=== PATIENT | male | born 1945 | race Caucasian/White ===

== ENCOUNTER 2019-06-12 05:17 | Inpatient (IN) | payer MEDICARE, OTHER ==
[2019-06-12] MEDS ORDERED: Benzocaine 20% Spray 60 ML CAN ONE (05:25)
[2019-06-12] MEDS ORDERED: Ondansetron PF 4 MG/2 ML Vial ONE ×2 (05:25→05:26)
[2019-06-12] MEDS ORDERED: Morphine 4 MG/ML VIAL ONE ×2 (05:25→08:43)
[2019-06-12 06:00] LABS: #Lymphocytes 0.9 thou/uL (1.20-3.40); #Monocytes 0.4 thou/uL (0.11-0.59); #Neutrophils 12.9 thou/uL (1.40-6.50); %Basophils 0.2 % (0.0-1.0); %Eosinophils 0.2 % (0.0-10.0); %Lymphocytes 6.1 % (21.0-51.0); %Monocytes 3.1 % (0.0-10.0); %Neutrophils 90.4 % (42.0-75.0); Mean Corpuscular HGB CONC 34.5 g/dL (32.0-36.0); Mean Corpuscular Hemoglobin 30.9 pg (27.0-31.0); Mean Corpuscular Volume 89.7 fL (78.0-98.0); Mean Platelet Volume 8.9 fL (7.4-10.4); Platelet Count 237 thou/uL (130-400); RBC Distribution Width 11.8 % (11.5-14.5); Red Blood Cell (RBC) Count 5.17 mill/uL (4.70-6.10); White Blood Cell (WBC) Count 14.3 thou/uL (4.8-10.8)
[2019-06-12 06:20] LABS: INR-International Normal Ratio 1.1; Prothrombin Time 13.9 SEC (12.0-14.7)
[2019-06-12] MEDS ORDERED: Pantoprazole 40 MG VIAL ONE (06:34)
[2019-06-12 06:54] LABS: ALT (SGPT) 25 U/L (8-55); AST (SGOT) 22 U/L (5-34); Albumin 4.4 g/dL (3.4-4.8); Alkaline Phosphatase 127 U/L (40-110); Anion Gap 16 mmol/L (10-20); BUN (Urea Nitrogen) 15 mg/dL (8.4-25.7); Bilirubin, Total 1.1 mg/dL (0.2-1.2); CK (CPK) 109 U/L (30-200); Calc. Creatinine Clearance 0 mL/min (70-130); Calcium 9.5 mg/dL (7.8-10.44); Carbon Dioxide 22 mmol/L (23-31); Chloride 100 mmol/L (98-107); Estimated GFR-MDRD 85; Globulin 3.4 g/dL (2.4-3.5); Glucose 245 mg/dL (83-110); Lipase Less than 4 U/L (8-78); Protein, Total 7.8 g/dL (5.8-8.1); Sodium 134 mmol/L (136-145)
[2019-06-12 07:33] LABS: Magnesium 1.8 mg/dL (1.6-2.6); Phosphorus 2.9 mg/dL (2.3-4.7)
--- NOTE | 2019-06-12 08:26 | RAD ---
SINGLE VIEW CHEST: Date: 06/12/2019 COMPARISON: None. HISTORY: Small bowel obstruction with nausea and vomiting. FINDINGS: Single view of the chest shows a nonspecific, nonobstructed bowel gas pattern. A cardiac monitoring d evice projects over the left chest wall. A NG tube can only be followed to the mid mediastinum. IMPRESSION: No evidence of acute cardiopulmonary disease. POS: CET
[2019-06-12] MEDS ORDERED: Pantoprazole 80 MG, Admixture Fee 1 EACH in Sodium Chloride 0.9% 100 ML IVPB SCH (09:00)
[2019-06-12 09:40] VITALS: BMI 32.8
[2019-06-12] MEDS ORDERED: Cepastat Lozenges 1 LOZ PO PRN (09:52)
[2019-06-12] MEDS ORDERED: Acetaminophen 650 MG Suppository PR PRN (09:52)
[2019-06-12] MEDS ORDERED: Ondansetron PF 4 MG/2 ML Vial IVP PRN (09:52)
[2019-06-12] MEDS ORDERED: Nitroglycerin 0.4 MG TAB (25 Tab Bottle) SL PRN (09:52)
[2019-06-12] MEDS ORDERED: hydrALAZINE 20 MG/ML VIAL SLOW IVP PRN (09:52)
[2019-06-12] MEDS ORDERED: Sodium Chloride 0.65% Nasal 44 ML BOT EA NARE PRN (09:52)
[2019-06-12] MEDS ORDERED: Artificial Tears 18 DROP/0.9 ML EA EYE PRN (09:52)
[2019-06-12] MEDS ORDERED: Bisacodyl 10 MG SUPP PR PRN (09:52)
[2019-06-12] MEDS: Lactated Ringer's 1,000 ML IV SCH ×2 (10:54→18:33)
[2019-06-12] MEDS: Morphine 4 MG/ML VIAL SLOW IVP PRN ×3 (11:01→20:09)
[2019-06-12 13:48] LABS: Hemoglobin 17.2 g/dL (14.0-18.0)
--- NOTE | 2019-06-12 13:49 | CON ---
DATE OF CONSULTATION: 06/12/2019 REQUESTING PHYSICIAN: Dr. Jori Ho. HISTORY OF PRESENT ILLNESS: This is a 73-year-old obese man, who was transferred from [facility] [place] [facility] [place] [employer], [place] today. The patient gives history of sudden onset epigastric abdominal pain, which started yesterday. Pain intensified as a result. The patient presented to emergency department past midnight. CT scan of the abdomen and pelvis was obtained following which the patient was transferred to [facility] for management of presumptive upper GI bleed as well as small bowel obstruction. A nasogastric tube was placed, which by report has returned over 600 mL of blood-tinged effluent. PAST MEDICAL HISTORY: Pertinent for duodenal ulcer and hemorrhage 17 years ago, required endoscopy and intervention. Additional past medical history includes coronary artery disease, hyperlipidemia , and atrial fibrillation. PAST SURGICAL HISTORY: Pertinent for a pulmonary ablation for atrial fibrillation, coronary angiography with stenting of LAD, open appendectomy, previous upper endoscopy, and excision of skin cancer x2. SOCIAL HISTORY: The patient is and lives at home with his . He denies any cigarette smoking, but admits to occasional intake of ethanol in moderate amounts. He denies any illicit drug abuse. FAMILY HISTORY: Noncontributory for this patient's age. PRE-HOSPITAL MEDICATIONS: Includes; 1. Aspirin 81 mg p.o. daily. 2. Atorvastatin 40 mg p.o. daily. 3. Plavix 75 mg p.o. daily. 4. Metoprolol 50 mg p.o. daily. 5. Omeprazole 20 mg p.o. daily. 6. CoQ10 of 100 mg p.o. at bedtime. ALLERGIES: TO CODEINE. REVIEW OF SYSTEMS: Ten-point review of systems essentially unremarkable except as stated in past medical history and chief complaint. PHYSICAL EXAMINATION: GENERAL: Reveals a 73-year-old normally developed man, who is otherwise coherent, interactive, and appears stated age. The patient is alert and oriented x3, appears to be in no acute distress at time of my evaluation. GI: He did however report passing flatus. Last bowel movement was yesterday, which was nonbloody. PERTINENT LABORATORY FINDINGS: CBC with 14,300 white blood cells, hemoglobin and hematocrit 16.0 and 46.4 respectively, and platelet count is 237,000. Metabolic profile; sodium 134, potassium 4.0, chloride is 100, bicarb is 22, BUN is 15, creatinine is 0.88, glucose is 245, magnesium 1.8, and phosphorus 2.9. AST and ALT normal at 22 and 25 respectively. Serum lipase is less than 4. I have personally reviewed the CT scan of the abdomen and pelvis, which accompanied the patient from [place], which reveals multiple distended loops of small bowel. There is air however within the small and large bowel extending to the rectum. Chest x-ray which was obtained this morning is essentially unremarkable. IMPRESSIONS: 1. Acute epigastric abdominal pain, likely secondary to gastroesophageal reflux disease versus peptic ulcerative disease with acute duodenitis. 2. Acute SBO 3. History of coronary artery disease. 4. History of hyperlipidemia. PLAN: The nasogastric tube which accompanied the patient to [employer], [place] is noted to be at 65 cm at the nose and the NG tube was withdrawn to 55 cm, irrigated with saline until the effluent was clear. I suspect that the blood tinged gastric effluent is likely secondary to mucosal trauma from nasogastric tube placement. This is bleeding peptic ulcer. PLAN: 1. There is no acute surgical indication for this patient at this time. 2. We will continue with bowel rest and increase activity. 3. Once the patient has been evaluated by Gastroenterology, if no endoscopy is warranted, we will initiate small-bowel follow-through and make further recommendations as necessary. 4. Above findings and plan discussed with the patient and his at bedside. They both indicated understanding information given. I answered their questions. Thank you again, Dr. Ho for allowing me the opportunity to participate in the care of this patient. Job ID: [id number] [facility]
--- NOTE | 2019-06-12 14:42 | HP ---
PRIMARY CARE PHYSICIAN: [facility]. REASON FOR ADMISSION: Transferred from [facility] for small bowel obstruction and coffee-ground emesis. HISTORY OF PRESENT ILLNESS: A 73-year-old male who has underlying history of coronary artery disease, required stent 2 years ago, and currently, the patient is on aspirin and Plavix along with other cardiac medication, who was having generalized periumbilical abdominal pain started yesterday morning. Initially, pain was on and off, and the patient waited up until in the evening time when pain became constant and unbearable and started nausea and vomiting. He was not passing any gas or had no bowel movement since yesterday. He was evaluated at local [facility] where the patient had CT abdomen and pelvis, which showed small bowel obstruction. Subsequently, the patient was transferred to our hospital for further evaluation. In our emergency room, the patient had NG tube placed, and subsequently, coffee-ground material drained. After putting NG tube, the patient felt slightly better, but again his pain was returning back with the same intensity in the periumbilical region. Gastroenterology Team as well as General Surgery was notified by ER physician. The patient was hemodynamically stable, and we decided to admit this patient to surgical floor. The patient denies any chest pain, palpitation, or shortness of breath. He denies any previous history of small bowel obstruction. He denies any constipation, diarrhea, melena, or hematochezia prior to this. REVIEW OF SYSTEMS: CONSTITUTIONAL: Negative for weight loss or gain, ability to conduct usual activities. SKIN: Negative for rash, itching. EYES: Negative for double vision, pain. ENT/MOUTH: Negative for nose bleeding, neck stiffness, pain, tenderness. CARDIOVASCULAR: Negative for palpitations, dyspnea on exertion, orthopnea. RESPIRATORY: Negative for shortness of breath, wheezing, cough, hemoptysis, fever or night sweats. GASTROINTESTINAL: Negative for poor appetite, abdominal pain, heartburn, nausea, vomiting, constipation, or diarrhea. GENITOURINARY: Negative for urgency, frequency, dysuria, nocturia. MUSCULOSKELETAL: Negative for pain, swelling. NEUROLOGIC/PSYCHIATRIC: Negative for anxiety, depression. ALLERGY/IMMUNOLOGIC: Negative for skin rash, bleeding tendency. Please see my HPI for pertinent positives and negatives. All other review of systems reviewed and negative except as mentioned in HPI. PAST MEDICAL HISTORY: Hypertension, dyslipidemia, obesity, and coronary artery disease. PAST SURGICAL HISTORY: Hernia repair when he was young and open appendicectomy. PAST PSYCHIATRIC HISTORY: Reviewed and negative. SOCIAL HISTORY: The patient is . No history of tobacco, alcohol, or illicit drug abuse. FAMILY HISTORY: No strong family history of premature coronary artery disease, stroke, or cancer. ALLERGIES: CODEINE. CURRENT HOME MEDICATIONS: 1. Aspirin 81 mg daily. 2. Metoprolol tartrate 25 mg twice daily. 3. Omeprazole 40 mg daily. 4. Atorvastatin 40 mg daily. 5. Plavix 75 mg daily. 6. Coenzyme Q10, 100 mg daily. EMERGENCY ROOM COURSE: The patient has received Protonix bolus. Protonix drip was started. Morphine 4 mg x2, IV fluid, and Zofran 8 mg were given. PHYSICAL EXAMINATION: VITAL SIGNS: Currently, blood pressure 142/77, pulse 64, respiratory rate 16, temperature 97.9, and saturation 99% on room air. Weight 122.4 kg. GENERAL: The patient is currently alert, awake, no acute distress. HEENT: Head; normocephalic, atraumatic. NECK: Supple. No JVD. No meningeal signs of irritation. HEENT: NG tube in place with low intermittent suction, draining coffee-ground material. LUNGS: Clear to auscultation without any rhonchi or rales. CARDIAC: S1, S2 regular. No murmur. No gallop. No rub. ABDOMEN: Obesity noted. No bowel sound. Tenderness in periumbilical region. No peritoneal sign. No organomegaly. No mass. EXTREMITIES: No edema. Good distal pulsation. SKIN: No skin rash. HEMATOLOGICAL SYSTEM: No lymphadenopathy. NEUROLOGIC: Nonfocal examination. SIGNIFICANT LABORATORY DATA: CT abdomen and pelvis done at [facility] reviewed and consistent with small bowel obstruction. Laboratory done at other emergency room, reviewed. CBC; WBC 14.3, hemoglobin 16.0, and platelets 237. INR 1.1. BMP; sodium 134, potassium 4.0, chloride 100, carbon dioxide 22, BUN 15, creatinine 0.88, glucose 245, calcium 9.5, phosphorus 2.9, magnesium 1.8. LFT; AST 22, ALT 25, alkaline phosphatase 127, albumin 4.4, lipase less than 4. BNP 14. Troponin 0.017. Chest x-ray based on my review, no acute cardiopulmonary process. ASSESSMENT: 1. High-grade small bowel obstruction. 2. Coffee-ground emesis. 3. Coronary artery disease with history of stent. 4. Dyslipidemia. 5. Gastroesophageal reflux disease. 6. Obesity with BMI 32. PLAN: 1. Admission to surgical floor, keep n.p.o. 2. NG tube with low intermittent suction. 3. General Surgery consultation. 4. The patient will need small bowel follow-through if does not improve. 5. Gastroenterology consultation for coffee-grounds emesis. 6. Hold aspirin and Plavix. Plan, continue H and H monitoring every 6 hourly. 7. IV fluid with NS at 125 mL/h. 8. We will recheck hemoglobin A1c tomorrow given elevated blood sugar. 9. Continue Protonix drip. 10. Pain control with morphine p.r.n. basis. 11. Deep venous thrombosis prophylaxis, SCD boots. No Lovenox because of gastrointestinal bleed. GI prophylaxis Protonix drip. CODE STATUS: The patient is full code. The patient's is surrogate decision maker. DISPOSITION PLAN: Based on clinical course. Plan of care discussed with the patient and his at bedside. Job ID: [id number]
[2019-06-12] MEDS ORDERED: Sodium Chloride 0.9% 1,000 ML IV SCH (15:00)
[2019-06-12] MEDS: Pantoprazole 80 MG in Sodium Chloride 0.9% 100 ML IVP SCH (17:04)
[2019-06-12 18:08] LABS: Hemoglobin 16.8 g/dL (14.0-18.0)
--- NOTE | 2019-06-12 18:43 | CON ---
DATE OF CONSULTATION: 06/12/2019 CHIEF COMPLAINT: Abdominal pain. HISTORY OF PRESENT ILLNESS: Mr. Oscar is a 73-year-old man who presented to the emergency room in [place] after he had sudden onset epigastric severe pressure-type pain at 7:30 p.m. last night. Pain progressed, he went onto the emergency room in [place], where a CT scan was performed. There was small bowel dilation up to a transition point in the mid small bowel suggestive of a small-bowel obstruction. He was transferred to [facility], where an NG tube was placed. He initially had some bright red blood out from the stomach with NG suction. He had no nausea or vomiting prior to that. He has had no diarrhea, constipation, or blood in the stool. He did have a bleeding duodenal ulcer 17 years ago that required cautery endoscopically. Since the NG tube was placed, he filled up two buckets on the suction canisters on the wall. He still has some persistent pressure type epigastric abdominal pain that is constant. His weight has been stable. He last had a colonoscopy around 2005. He states that he was treated for H pylori after the bleeding duodenal ulcer years ago. PAST MEDICAL HISTORY: 1. GI bleed secondary to duodenal ulcer 17 years ago. 2. H. pylori infection treated with antibiotics, pectin as well. 3. Coronary artery disease, status post coronary artery stent by Dr. Rubi 2 or 3 years ago. 4. Atrial fibrillation, status post ablation. 5. Hyperlipidemia. PAST SURGICAL HISTORY: Open appendectomy, colonoscopy, EGD, cardiac ablation, coronary artery stent, and skin cancer removed. FAMILY HISTORY: Positive for colon cancer in his mother at advanced age. SOCIAL HISTORY: He drinks maybe scotch twice per month. No drugs or smoking. ALLERGIES: CODEINE. HE STATES THAT HE WAS ADMITTED WITH A FECAL IMPACTION SECONDARY TO COUGH SYRUP WITH CODEINE IN THE PAST. MEDICATIONS: Prior to admission: 1. Aspirin 81 mg daily. 2. Plavix. 3. Atorvastatin. 4. Metoprolol. 5. Omeprazole 20 mg daily. 6. CoQ10. REVIEW OF SYSTEMS: Negative x10 systems reviewed, except as stated in history of present illness. PHYSICAL EXAMINATION: VITAL SIGNS: Temperature 97.8, pulse 73, and blood pressure 175/77. GENERAL: He is in no acute distress. He is alert and oriented x3. HEENT: His eyes have no scleral icterus. He has an NG tube in place. Oropharynx is clear without lesions. He has dry mucous membranes. He has no cervical or supraclavicular lymphadenopathy. LUNGS: Clear to auscultation bilaterally. HEART: Regular rate and rhythm without murmur. ABDOMEN: Soft. Tender in the epigastric region without guarding. Bowel sounds are present, but hypoactive. EXTREMITIES: No lower extremity edema. NEUROLOGIC: Cranial nerves are grossly intact. LABORATORY DATA: White blood cell count 14.3, hemoglobin 16.0, this went up to 17.2 this afternoon, platelet count 237. INR 1.1. Creatinine 0.88, bilirubin 1.1, AST 22, ALT 25, alkaline phosphatase 127, lipase 4, and albumin 4.4. IMPRESSION: 1. Small-bowel obstruction. CT scan of the abdomen and pelvis in [place] showed dilation up to a transition point in the mid small bowel. The patient appears to be having decrease in output from his NG tube. This could resolve with the NG decompression potentially without surgery. If his output from the NG tube remains low in the morning, then I would anticipate small bowel Gastrografin follow-through as a next step. This will be deferred to General Surgery for primary management of the small-bowel obstruction. 2. Gastrointestinal bleed. He had red blood noted from the NG tube when it was placed. He did have a nose bleed along with that has been on aspirin and Plavix. His hemoglobin is 17. I doubt that he is having a significant GI bleed at this point. He has been on omeprazole. He does have a history of bleeding peptic ulcer secondary to Helicobacter pylori. CT scan also showed a possible diverticulum in the fundus of the stomach that raised a question of a mass. Ultimately, he will require upper endoscopy after the small-bowel obstruction is resolved. It is possible that if he is doing better tomorrow and he does well with a Gastrografin small bowel follow-through, then he could potentially undergo esophagogastroduodenoscopy the next day. 3. History of duodenal ulcer related to Helicobacter pylori. We will need to recheck his Helicobacter pylori status. We would anticipate doing biopsies for that at the time of endoscopy. 4. Family history of colon cancer in his mother. He should undergo colonoscopy again after resolution of the small bowel obstruction. This could be performed as an outpatient after a few weeks. RECOMMENDATIONS: 1. Proton pump inhibitor IV. 2. Management of small-bowel obstruction will be per General Surgery. If he passes a Gastrografin small bowel follow-through tomorrow, then we could potentially perform upper endoscopy the next day to follow up. 3. Colonoscopy as an outpatient in the future after resolution of the small-bowel obstruction. 4. It is noted that the patient is on aspirin and Plavix for coronary artery disease, status post coronary stent around 3 years ago. Job ID: [id number]
--- NOTE | 2019-06-12 23:49 | PRG ---
DATE OF SERVICE: 06/12/2019 SUBJECTIVE: The patient was seen this evening during rounds, resting comfortably. The patient remains on the surgical floor. The patient is in the process of getting his small bowel follow-through. The patient still has not passed any gas and reports epigastric abdominal pain. The patient's NG tube has put out a total of 200. ASSESSMENT: 1. Acute epigastric abdominal pain likely secondary to esophageal reflux disease versus peptic ulcerative disease with acute duodenitis. 2. History of coronary artery disease. 3. History of hyperlipidemia. PLAN: Continue NG tube. Continue bowel rest and increase activity. Pending final results from small-bowel follow-through. Job ID: [id number]
[2019-06-13] MEDS: Lactated Ringer's 1,000 ML IV SCH ×3 (00:04→16:38)
[2019-06-13 00:05] LABS: Hemoglobin 17.1 g/dL (14.0-18.0)
--- NOTE | 2019-06-13 00:12 | RAD ---
Exam: Gastrografin small bowel HISTORY: Evaluate for small bowel obstruction FINDINGS: Initial ict support and test engineers film demonstrates air-filled loops of small bowel in the left hemiabdomen. Nasogastric tube terminates in the stomach There is evidence of distended contrast filled loops of small bowel throughout the abdomen. On the 6 hour images, contrast still does not appear to opacify the right hemicolon. Possibility of a significant obstructive process is raised. Follow-up supine abdomen KUB is recommended tomorrow laura [place] to assess for interval passage of contrast IMPRESSION: Distended contrast-filled loops of small bowel, worrisome for a significant obstructive p rocess. Follow-up imaging tomorrow morning is recommended to assess for interval passage of contrast into the right hemicolon. CODE T
[2019-06-13 04:51] LABS: #Lymphocytes 0.8 thou/uL (1.20-3.40); #Monocytes 1.1 thou/uL (0.11-0.59); #Neutrophils 11.4 thou/uL (1.40-6.50); %Basophils 0.1 % (0.0-1.0); %Eosinophils 0.1 % (0.0-10.0); %Lymphocytes 6.1 % (21.0-51.0); %Monocytes 8.2 % (0.0-10.0); %Neutrophils 85.4 % (42.0-75.0); Mean Corpuscular HGB CONC 31.7 g/dL (32.0-36.0); Mean Corpuscular Hemoglobin 29.1 pg (27.0-31.0); Mean Corpuscular Volume 91.8 fL (78.0-98.0); Platelet Count 313 thou/uL (130-400); RBC Distribution Width 12.1 % (11.5-14.5); Red Blood Cell (RBC) Count 5.83 mill/uL (4.70-6.10); White Blood Cell (WBC) Count 13.3 thou/uL (4.8-10.8)
[2019-06-13] MEDS: Pantoprazole 80 MG in Sodium Chloride 0.9% 100 ML IVP SCH (04:56)
[2019-06-13 05:08] LABS: ALT (SGPT) 16 U/L (8-55); AST (SGOT) 16 U/L (5-34); Albumin 3.9 g/dL (3.4-4.8); Alkaline Phosphatase 111 U/L (40-110); Anion Gap 18 mmol/L (10-20); BUN (Urea Nitrogen) 23 mg/dL (8.4-25.7); Bilirubin, Total 1.2 mg/dL (0.2-1.2); Calc. Creatinine Clearance 115 mL/min (70-130); Calcium 9.3 mg/dL (7.8-10.44); Carbon Dioxide 19 mmol/L (23-31); Chloride 105 mmol/L (98-107); Estimated GFR-MDRD 75; Globulin 3.4 g/dL (2.4-3.5); Glucose 240 mg/dL (83-110); Potassium 4.5 mmol/L (3.5-5.1); Protein, Total 7.3 g/dL (5.8-8.1); Sodium 137 mmol/L (136-145)
[2019-06-13] MEDS ORDERED: HumaLOG 300 UNITS/3 ML VIAL SC PRN ×2 (07:00)
[2019-06-13] MEDS ORDERED: Dextrose 50% Abboject 50 ML SYRINGE SLOW IVP PRN (07:00)
[2019-06-13] MEDS ORDERED: Dextrose 5% in Water 1,000 ML IV PRN (07:00)
[2019-06-13 07:17] LABS: Hemoglobin A1c 5.7 % (4.0-6.0)
[2019-06-13] MEDS ORDERED: Loratadine 10 MG TAB PO PRN (07:48)
--- NOTE | 2019-06-13 09:15 | PDOC.HOSPP ---
- Subjective Encounter Date: 06/13/19 Encounter Time: 07:40 Subjective: Patient seen and examined. pt still has intermittent abdominal pain, he is not passing gas, No overnight events - Objective Vital Signs & Weight: Vital Signs (12 hours) Temp Pulse Resp BP Pulse Ox 06/13/19 08:00 98.5 F 97 18 134/61 93 L 06/13/19 04:25 98.9 F 102 H 18 154/76 H 96 06/12/19 23:05 98.9 F 90 18 157/79 H 94 L 06/12/19 21:22 93 L Weight Weight 270 lb I&O: 06/12/19 06/13/19 06/14/19 06:59 06:59 06:59 Output Total 550 1375 Balance -550 -1375 Result Diagrams: 06/13/19 04:34 06/13/19 04:34 Radiology Reviewed by me: Yes Hospitalist ROS - Review of Systems Constitutional: denies: fever, chills, sweats, weakness, malaise, other ENT: denies: ear pain, ear discharge, nose pain, nose discharge, nose congestion , mouth pain, mouth swelling, throat pain, throat swelling, other Respiratory: denies: cough, dry, shortness of breath, hemoptysis, SOB with excertion, pleuritic pain, sputum, wheezing, other Cardiovascular: denies: chest pain, palpitations, orthopnea, paroxysmal noc. dyspnea, edema, light headedness, other Gastrointestinal: reports: abdominal pain. denies: nausea, vomiting, diarrhea, constipation, melena, hematochezia, other Genitourinary: denies: dysuria, frequency, incontinence, hematuria, retention, other Musculoskeletal: denies: neck pain, shoulder pain, arm pain, back pain, hand pain, leg pain, foot pain, other Skin: denies: rash, lesions, florinda, bruising, other - Medication Medications: Active Medications Generic Name Dose Route Start Last Admin Trade Name Freq PRN Reason Stop Dose Admin Lactated Ringer's 1,000 mls @ 125 mls/hr 06/12/19 09:52 06/13/19 08:31 Lactated Ringer's IV 1,000 mls .Q8H NIK Administration Metoprolol Succinate 50 mg 06/13/19 09:00 06/13/19 08:15 Toprol Xl PO Not Given DAILY [facility] Morphine Sulfate 4 mg 06/12/19 09:52 06/12/19 20:09 Morphine SLOW IVP 4 mg Q2H PRN Administration Pain Ondansetron HCl 4 mg 06/12/19 09:52 06/12/19 15:53 Zofran IVP 4 mg Q6H PRN Administration Nausea/Vomiting Pantoprazole Sodium 40 mg 06/13/19 09:00 06/13/19 08:15 Protonix PO Not Given DAILY [facility] Sodium Chloride 10 ml 06/13/19 09:00 06/13/19 08:16 Flush - Normal Saline IVF Not Given Q12HR [facility] - Exam General Appearance: NAD, awake alert Eye: PERRL, anicteric sclera ENT: normocephalic atraumatic, no oropharyngeal lesions ENT - other findings: NG tube with LIS Neck: supple, symmetric, no JVD, no thyromegaly Heart: RRR, no murmur, no gallops, no rubs Respiratory: CTAB, no wheezes, no rales, no ronchi Gastrointestinal: soft, non-tender, non-distended, normal bowel sounds Extremities: no cyanosis, no clubbing, no edema Skin: normal turgor, no lesions Neurological: no focal deficits Musculoskeletal: normal tone, normal strength Psychiatric: normal affect, normal behavior, A&O x 3 Hosp A/P (1) SBO (small bowel obstruction) Code(s): K56.609 - UNSP INTESTNL OBST, UNSP TO PARTIAL VERSUS COMPLETE OBST Status: Acute (2) Upper GI bleed Code(s): K92.2 - GASTROINTESTINAL HEMORRHAGE, UNSPECIFIED Status: Acute (3) Hyperglycemia Code(s): R73.9 - HYPERGLYCEMIA, UNSPECIFIED Status: Acute (4) Obesity (BMI 30.0-34.9) Code(s): E66.9 - OBESITY, UNSPECIFIED Status: Chronic (5) Dyslipidemia Code(s): E78.5 - HYPERLIPIDEMIA, UNSPECIFIED Status: Chronic (6) Hypertension Code(s): I10 - ESSENTIAL (PRIMARY) HYPERTENSION Status: Chronic (7) CAD (coronary artery disease) Code(s): I25.10 - ATHSCL HEART DISEASE OF [place] CORONARY ARTERY W/O ANG PCTRS Status: Chronic - Plan old records reviewed/req, plan discussed w/ family 06/13/19 continue NG tube with LIS get xray abdomen continue protonix H & H stable check HBA1c and start hyperglycemia protocol for high blood sugar ? new diabetes type 2 Medication reviewed and continue to provide symptomatic care and supportive care
--- NOTE | 2019-06-13 10:04 | RAD ---
KUB: 06/13/2019 COMPARISON: Small bowel follow-through 06/12/2019 HISTORY: Small bowel obstruction FINDINGS: Supine imaging provided, limiting assessment for free intraperitoneal air. There is residua l contrast media within the stomach. Nasogastric tube present. Persistent contrast media noted within numerous dilated loops of small bowel throughout the abdomen/pelvis suggesting a high-grade sm all bowel obstruction. IMPRESSION: Findings concerning for high-grade small bowel obstruction.
--- NOTE | 2019-06-13 15:30 | PRG ---
DATE OF SERVICE: 06/13/2019 SUBJECTIVE: Mr. Oscar was resting well this morning, complaining of mild nausea. He states that his NG tube has been suctioning as much liquid as it was initially. He is still having intermittent abdominal pain. During rounds, we removed the NG tube and replaced it with a with a new one as it was no longer functioning properly. The patient tolerated the procedure well and immediately was getting clear brown fluid out into the suction canister. PHYSICAL EXAMINATION: VITAL SIGNS: Reviewed and stable within normal limits. I and O: His gastric drainage so far has been 1000 mL. GENERAL: The patient is resting comfortably, in no acute distress. RESPIRATORY: The patient breathing comfortably. No respiratory distress noted. NEUROLOGIC: Moves all 4 limbs and converses normally. GASTROINTESTINAL: Abdomen was soft, mildly distended, mildly tender. Bowel sounds present. LABORATORY DATA: Labs this morning were unremarkable. ASSESSMENT: 1. Small bowel obstruction. 2. Dyslipidemia, hypertension, coronary artery disease, and hyperglycemia. PLAN: 1. Plan is to continue NG tube with low intermediate suction for the next 24 hours and plan for laparoscopic lysis of adhesions in the morning with Dr. Archibald. 2. We will consult Cardiology today for recommendations on involving the patient 's Plavix and aspirin usage prior to surgery. He states that he last took aspirin and Plavix on Wednesday, which would be 4 days prior to surgery. Continue supportive measures including pain and nausea control. Continue n.p.o. status. The patient was seen and examined by Dr. Archibald. Job ID: [id number] [id number]
[2019-06-13] MEDS: Pantoprazole 80 MG, Admixture Fee 1 EACH in Sodium Chloride 0.9% 100 ML IVP SCH (16:38)
[2019-06-13] MEDS: Atorvastatin Calcium 40 MG TAB PO SCH (20:20)
[2019-06-13] MEDS: Ubidecarenone 50 MG CAP PO SCH (20:20)
--- NOTE | 2019-06-14 01:00 | PRG ---
DATE OF SERVICE: SUBJECTIVE: The patient remains on the surgical floor. He is hospital day #2, status post admission for abdominal pain. Today, he underwent a small-bowel follow-through examination that was consistent with a high-grade small-bowel obstruction. He had an NG tube that had been placed initially upon his admission, but was replaced today by the Day Team as it was not functioning. Tonight, the patient states that since his NG tube was replaced, he has had less bloating, but still feels distended and has some nausea, but this also has improved. The patient denies passing any gas or having a bowel movement. PHYSICAL EXAMINATION: VITAL SIGNS: Stable. The patient is afebrile. ABDOMEN: Distended, minimally tenderness with no bowel sounds noted. His NG tube was flushed multiple times and again appears to be functioning properly. ASSESSMENT: Small-bowel obstruction. PLAN: Plan will be to continue NG tube suctioning and likely undergo laparoscopic lysis of adhesions tomorrow. Job ID: [id number]
[2019-06-14] MEDS: Lactated Ringer's 1,000 ML IV SCH ×4 (01:04→22:32)
--- NOTE | 2019-06-14 01:27 | CON ---
DATE OF CONSULTATION: HISTORY OF PRESENT ILLNESS: The patient is a 73-year-old with history of coronary artery disease, who presents with abdominal discomfort. The patient has previous history of coronary artery disease. In November of 2016, he underwent PTCA and stent placement to the left anterior descending artery. The patient subsequently done well. He denies any chest discomfort or dyspnea. The patient also has a history of atrial fibrillation,and underwent radiofrequency ablation nearly 10 years ago. The patient has been in his usual state of health, when he did start developing abdominal discomfort. He is scheduled to undergo surgery. PAST MEDICAL HISTORY: 1. Atrial fibrillation. 2. Coronary artery disease. 3. Hypertension. 4. Peptic ulcer disease. PAST SURGICAL HISTORY: 1. Cataract surgery. 2. Hernia surgery. 3. Appendectomy. SOCIAL HISTORY: Non-smoker. PHYSICAL EXAM; Neck: No JVD Lung : Clear Heart: Normal S1 S2 no murmurs Abdomen: Nondistended Extremities: No edema. Vascular : Radial pulses 2+. LABORATORY RESULTS: White blood cell count 13.3, hemoglobin 17.0, hematocrit 35.5, and his platelets were 313. Sodium 137, potassium 4.5, chloride 105, bicarb 19 , BUN 23, and creatinine was 1.8. EKG revealed normal sinus rhythm with poor R-wave progression. IMPRESSION: 1. Small-bowel obstruction. 2. History of percutaneous transluminal coronary angioplasty and stent placement. 3. History of atrial fibrillation. 4. Hypertension. 5. Dyslipidemia. This patient presents with a small bowel obstruction. He is undergoing surgery. The patient had a stent placement more than two years ago. He should be at acceptable risk to stop the anti-platelet medications prior to surgery. Would restart these medication soon as appropriate after surgery. Job ID: [id number] [facility]
[2019-06-14] MEDS: Pantoprazole 80 MG, Admixture Fee 1 EACH in Sodium Chloride 0.9% 100 ML IVP SCH ×3 (02:32→22:32)
[2019-06-14 05:33] LABS: #Lymphocytes 1.3 thou/uL (1.20-3.40); #Monocytes 1.2 thou/uL (0.11-0.59); #Neutrophils 5.7 thou/uL (1.40-6.50); %Basophils 0.2 % (0.0-1.0); %Eosinophils 0.4 % (0.0-10.0); %Lymphocytes 15.8 % (21.0-51.0); %Monocytes 14.7 % (0.0-10.0); Hemoglobin 15.7 g/dL (14.0-18.0); Mean Corpuscular Hemoglobin 31.1 pg (27.0-31.0); Mean Corpuscular Volume 91.6 fL (78.0-98.0); Mean Platelet Volume 7.1 fL (7.4-10.4); Platelet Count 257 thou/uL (130-400); RBC Distribution Width 11.9 % (11.5-14.5); Red Blood Cell (RBC) Count 5.04 mill/uL (4.70-6.10); White Blood Cell (WBC) Count 8.2 thou/uL (4.8-10.8)
[2019-06-14 05:56] LABS: Anion Gap 12 mmol/L (10-20); BUN (Urea Nitrogen) 31 mg/dL (8.4-25.7); Calc. Creatinine Clearance 128 mL/min (70-130); Calcium 9.2 mg/dL (7.8-10.44); Carbon Dioxide 29 mmol/L (23-31); Chloride 103 mmol/L (98-107); Estimated GFR-MDRD 85; Glucose 148 mg/dL (83-110); Potassium 4.2 mmol/L (3.5-5.1); Sodium 140 mmol/L (136-145)
[2019-06-14] MEDS ORDERED: Bupivacaine 0.25% HCL 30 ML VIAL ONE (08:28)
[2019-06-14] MEDS ORDERED: EPINEPHrine 1 MG/ML AMP ONE (08:28)
[2019-06-14] MEDS ORDERED: Fentanyl 100 MCG/2 ML VIAL ONE (08:44)
[2019-06-14] MEDS ORDERED: Phenylephrine HCL 10 MG/ML VIAL ONE (08:45)
[2019-06-14] MEDS ORDERED: Sodium Chloride 0.9% 100 ML ONE (09:07)
[2019-06-14] MEDS ORDERED: Piperacillin/Tazobactam 3.375 GM VIAL ONE (09:07)
[2019-06-14 09:25] LABS: Magnesium 1.9 mg/dL (1.6-2.6); Phosphorus 2.5 mg/dL (2.3-4.7)
--- NOTE | 2019-06-14 10:51 | PRG ---
DATE OF SERVICE: 06/14/2019 SUBJECTIVE: The patient was examined by Dr. Archibald in Day Stay, preoperatively. He is resting comfortably, awaiting surgery. PHYSICAL EXAMINATION: VITAL SIGNS: Reviewed and stable. I and O output from his NG tube overnight was 4250 mL. GENERAL: The patient resting comfortably. No acute distress. RESPIRATORY: The patient breathing comfortably. No respiratory distress. NEUROLOGIC: Moves all four limbs. GASTROINTESTINAL: Abdomen was soft, mildly distended, less tender than yesterday. LABORATORY STUDIES: This morning labs were unremarkable. ASSESSMENT: 1. Small-bowel obstruction. 2. Dyslipidemia. 3. Hypertension. 4. Coronary artery disease. 5. Hyperglycemia. PLAN: 1. The plan is to undergo laparoscopic lysis of adhesions this morning with Dr. Archibald. Cardiology has been consulted for recommendations for anticoagulation. We will restart patient's home medications after surgery with clearance from Cardiology. Postoperatively, we will manage the patient's pain, start a bowel regimen, initiate physical and occupational therapy, and begin planning for discharge. The patient was seen and examined by Dr. Archibald. Job ID: [id number] [facility]
[2019-06-14] MEDS ORDERED: Promethazine HCl 25 MG/ML VIAL IM PRN (11:12)
[2019-06-14] MEDS ORDERED: Ondansetron HCl/PF 4 MG/2 ML Vial IVP PRN (11:12)
[2019-06-14] MEDS ORDERED: Meperidine HCl/PF 25 MG/ML VIAL SLOW IVP PRN (11:12)
[2019-06-14] MEDS ORDERED: Promethazine HCl 25 MG/ML VIAL SLOW IVP PRN (11:12)
[2019-06-14] MEDS ORDERED: chlorproMAZINE HCl 50 MG/2 ML AMP SLOW IVP PRN (11:42)
[2019-06-14] MEDS ORDERED: chlorproMAZINE HCl 25 MG in Sodium Chloride 0.9% 50 ML IVPB PRN (11:49)
--- NOTE | 2019-06-14 11:56 | OP ---
DATE OF PROCEDURE: 06/14/2019 PREOPERATIVE DIAGNOSIS: Acute small bowel obstruction. POSTOPERATIVE DIAGNOSIS: Acute closed-loop small bowel obstruction secondary to adhesions. PROCEDURE PERFORMED: Laparoscopic adhesiolysis. ANESTHESIA: General endotracheal. ESTIMATED BLOOD LOSS: 5 mL. FLUIDS GIVEN: 1000 mL of crystalloids. COUNTS: Sponge and instrument counts were verified as correct x2. COMPLICATIONS: None apparent at the time of operation. INDICATIONS FOR OPERATION: This is a 73-year-old man, who presented with progressive abdominal pain associated with distention and bloody emesis. Nasogastric tube was placed after x-ray findings suggestive of small bowel obstruction. Small bowel follow-through was completed. This did show a high-grade small bowel obstruction, for which the patient was brought to the operating room today for laparoscopy. Findings are consistent with a closed-loop distal small bowel obstruction with moderate amount of hemorrhagic ascites. Bowel appeared viable. DESCRIPTION OF OPERATION: Informed consent was obtained from the patient, who was brought to the operating room and placed in supine position. Following general anesthesia, abdomen was sterilely prepped and draped in usual fashion. A Simpson catheter was inserted and placed to bedside drain. The skin in the left subcostal region was anesthetized with 1% lidocaine. A stab incision was made using 11 scalpel. Veress needle was inserted through the incision and placed in peritoneal cavity through which the abdomen was insufflated with 3 L of CO2 gas. Intraabdominal pressure noted at 1 mmHg. Following abdominal insufflation, Veress needle was removed and a 5-mm trocar introduced using a Visiport under laparoscopy. Laparoscopy confirmed proper placement of the port. No injuries to underlying structures. Additional laparoscopy reveals markedly dilated small bowel. Given the previous radiographic images suggestive of distal small bowel obstruction and a history of prior appendectomy, we suspected the right lower quadrant to be the area of obstruction. I then was able to place two 5-mm trocars in the left lower quadrant and left mid abdomen lateral to the umbilicus. This was done under laparoscopy after the overlying skin were infiltrated with 0.25% Marcaine with epinephrine and appropriate incision was made. The patient was placed in a Trendelenburg position, rotated to his left. Using a Prestige grasper, small bowel was run from about a foot past the ligament of Treitz and distally, we noticed the long segment of small bowel with the mesentery, which appeared hemorrhagic. The bowel itself, though purplish looking, had peristalsis. We continued to run the bowel distally and encountered a single adhesion, which has caustic closed-loop obstruction. The adhesion was divided using the LigaSure device with good hemostasis. The transition point was readily identified and distal to this, the bowel appeared decompressed. I was able to run the bowel all the way down to the ileocecal junction, finding no other pathology. The hemorrhagic ascites was evacuated using suction. I irrigated the pelvis with sterile saline and I evacuated the irrigant fluid. The patient tolerated the operation without any apparent complication. Laparoscopy was terminated. The abdomen was desufflated. All ports and instruments were removed and accounted for. Skin incisions were closed using 4-0 Monocryl suture in subcuticular fashion. Dermabond was applied over incisional closure. The patient tolerated the operation without any apparent complication and was returned to recovery room in satisfactory condition. Job ID: [id number]
[2019-06-14] MEDS ORDERED: Succinylcholine Chloride 20 MG/ML 10 ml SYRINGE FS ONE (12:21)
[2019-06-14] MEDS ORDERED: Ondansetron PF 4 MG/2 ML Vial ONE (12:21)
[2019-06-14] MEDS ORDERED: Glycopyrrolate 0.2 MG/ML 5 ML SYRINGE ONE (12:21)
[2019-06-14] MEDS ORDERED: Lidocaine 1% PF 5 ML VIAL ONE (12:21)
[2019-06-14] MEDS ORDERED: Rocuronium Bromide 10 MG/ML (10ML VIAL) ONE (12:21)
[2019-06-14] MEDS ORDERED: PROPOFOL 200 MG/20 ML VIAL ONE (12:21)
[2019-06-14] MEDS ORDERED: PHENYLEPHRINE-NS 100 MCG/ML 10 ML SYRINGE ONE (12:21)
[2019-06-14] MEDS ORDERED: Dexamethasone 20 MG/5 ML VIAL ONE (12:21)
[2019-06-14] MEDS: Piperacillin/Tazobactam 3.375 GM in Sodium Chloride 0.9% 100 ML IVPB SCH ×3 (12:58→23:41)
--- NOTE | 2019-06-14 18:16 | PDOC.HOSPP ---
- Subjective Encounter Date: 06/14/19 Encounter Time: 12:30 Subjective: Patient seen and examined in PACU. Pain controlled. No N/V. No new complaints. No overnight events - Objective Vital Signs & Weight: Vital Signs (12 hours) Temp Pulse Resp BP Pulse Ox 06/14/19 12:25 99.0 F 100 16 146/66 H 92 L 06/14/19 07:27 97.8 F 95 20 165/91 H 91 L Weight Weight 270 lb I&O: 06/13/19 06/14/19 06/15/19 06:59 06:59 06:59 Intake Total 3300 Output Total 550 5250 Balance -550 -1950 Result Diagrams: 06/14/19 04:57 06/14/19 04:57 Additional Labs: Accuchecks 06/14/19 06/14/19 06/13/19 17:43 05:28 23:13 POC Glucose 139 H 134 H 133 H Radiology Reviewed by me: Yes (XR - SBO) Hospitalist ROS - Review of Systems Respiratory: denies: cough, dry, shortness of breath, hemoptysis, SOB with excertion, pleuritic pain, sputum, wheezing, other Cardiovascular: denies: chest pain, palpitations, orthopnea, paroxysmal noc. dyspnea, edema, light headedness, other - Medication Medications: Active Medications Generic Name Dose Route Start Last Admin Trade Name Freq PRN Reason Stop Dose Admin Atorvastatin Calcium 40 mg 06/13/19 21:00 06/13/19 20:20 Lipitor PO Not Given HS NIK Coenzyme Q10 100 mg 06/13/19 21:00 06/13/19 20:20 Coenzyme Q10 PO Not Given HS NIK Lactated Ringer's 1,000 mls @ 125 mls/hr 06/12/19 09:52 06/14/19 14:17 Lactated Ringer's IV 1,000 mls .Q8H NIK Administration Pantoprazole Sodium 80 mg/ 100 mls @ 10 mls/hr 06/13/19 09:00 06/14/19 14:11 Miscellaneous Medication 1 IVP 100 mls each/ Sodium Chloride INF NIK Administration Piperacillin Sod/Tazobactam 100 mls @ 200 mls/hr 06/14/19 12:00 06/14/19 18: 07 Sod 3.375 gm/ Sodium Chloride IVPB 06/15/19 06:29 100 mls Q6HR NIK Administration Metoprolol Succinate 50 mg 06/13/19 09:00 06/14/19 08:25 Toprol Xl PO Not Given DAILY NIK Morphine Sulfate 4 mg 06/12/19 09:52 06/12/19 20:09 Morphine SLOW IVP 4 mg Q2H PRN Administration Pain Ondansetron HCl 4 mg 06/12/19 09:52 06/12/19 15:53 Zofran IVP 4 mg Q6H PRN Administration Nausea/Vomiting Sodium Chloride 10 ml 06/13/19 09:00 06/14/19 08:25 Flush - Normal Saline IVF Not Given Q12HR NIK - Exam General Appearance: NAD Neck: supple, no JVD Heart: no gallops, no rubs Respiratory: no wheezes, no rales, no ronchi Gastrointestinal: soft, no guarding, no rigidity Neurological: no new deficit Hosp A/P - Plan DVT proph w/SCDs SBO s/p Laparoscopic adhesiolysis UGI bleed - POA - resolved CAD s/p LAD stent 2016 HTN h/o PUD due to H pylori Par Afib Dyslipidemia f/h of Colon CA Obesity BMI 32 Hyponatremia Impaired glucose tolerance PLAN: Cont NG tube suction Cont Protonix drip Cont Toprol and other meds as above Cont supportive care Surgery input appreciated AM labs
[2019-06-14] MEDS: Ubidecarenone 50 MG CAP PO SCH (20:00)
[2019-06-14] MEDS: Atorvastatin Calcium 40 MG TAB PO SCH (20:00)
--- NOTE | 2019-06-14 23:52 | PRG ---
DATE OF SERVICE: 06/14/2019 SUBJECTIVE: The patient remains on the surgical floor. He is status post laparoscopic adhesiolysis today for acute small-bowel obstruction, specifically an acute closed-loop small-bowel obstruction secondary to adhesions. He tolerated the procedure well. He remains n.p.o. with an NG tube in place, but he denies any pain. He feels that he is much less "bloated" today. He has ambulated 2 to 3 times already today postoperatively. He denies passing flatus or having a bowel movement at this time. He denies nausea. His pain is controlled. PHYSICAL EXAMINATION: VITAL SIGNS: Stable. The patient is afebrile. GENERAL: The patient is resting comfortably in bed. He is awake, alert, and oriented. ABDOMEN: Much less distended from my visit with him last night. His abdomen is nontender. His postop sites are clean, dry, and intact and he does have hypoactive bowel sounds. ASSESSMENT AND PLAN: Status post laparoscopic adhesiolysis for an acute closed-loop small-bowel obstruction secondary to adhesions. PLAN: Will be to continue NG tube to intermittent suction. Encourage out of bed and ambulation and re-evaluate tomorrow and we will await return of bowel function. Job ID: [id number]
[2019-06-15 05:44] LABS: Anion Gap 12 mmol/L (10-20); BUN (Urea Nitrogen) 29 mg/dL (8.4-25.7); Calc. Creatinine Clearance 125 mL/min (70-130); Calcium 8.2 mg/dL (7.8-10.44); Carbon Dioxide 26 mmol/L (23-31); Chloride 107 mmol/L (98-107); Estimated GFR-MDRD 82; Glucose 119 mg/dL (83-110); Phosphorus 2.2 mg/dL (2.3-4.7); Sodium 141 mmol/L (136-145)
[2019-06-15] MEDS: Piperacillin/Tazobactam 3.375 GM in Sodium Chloride 0.9% 100 ML IVPB SCH (05:49)
[2019-06-15 06:08] LABS: Band 29 % (5-11); Hemoglobin 13.6 g/dL (14.0-18.0); Lymphocytes 25 % (21-51); MDiff Complete? YES; Mean Corpuscular HGB CONC 32.6 g/dL (32.0-36.0); Mean Platelet Volume 7.2 fL (7.4-10.4); Monocytes 14 % (0-10); Neutrophil 32 % (42-75); Platelet Count 227 thou/uL (130-400); RBC Distribution Width 11.6 % (11.5-14.5); Red Blood Cell (RBC) Count 4.54 mill/uL (4.70-6.10); White Blood Cell (WBC) Count 4.7 thou/uL (4.8-10.8)
[2019-06-15] MEDS ORDERED: Potassium Phosphate 15 MMOL in Sodium Chloride 0.9% 250 ML 250 ML IVPB SCH (07:45)
[2019-06-15] MEDS ORDERED: Sodium Chloride 0.9% (PF) 10 ML VIAL FS PRN (08:27)
[2019-06-15] MEDS: Pantoprazole 40 MG VIAL IVP SCH (08:55)
[2019-06-15] MEDS: Lactated Ringer's 1,000 ML IV SCH ×3 (09:03→22:32)
[2019-06-15] MEDS: Morphine 4 MG/ML VIAL SLOW IVP PRN ×2 (10:28→16:47)
--- NOTE | 2019-06-15 11:48 | PRG ---
DATE OF SERVICE: 06/15/2019 SUBJECTIVE: Mr. Oscar was resting comfortably this morning. He actually got up and walked around the floor already twice prior to rounds. He is postop day #1 from laparoscopic lysis of adhesions for small bowel obstruction. He reports he had small bowel movement this morning. He has not been nauseous or vomiting and his pain is well controlled. OBJECTIVE: VITAL SIGNS: Reviewed and within normal limits. I and O shows that his gastric drainage has slowed to 200 mL every night.. GENERAL: The patient is resting comfortably, in no acute distress. RESPIRATIONS: The patient is breathing comfortably. No respiratory distress. ABDOMEN: Soft, nontender. Bowel sounds present. EXTREMITIES: Moves all four extremities. Walks with ease. ASSESSMENT: 1. Small bowel obstruction. 2. History of dyslipidemia. 3. Hypertension. 4. Coronary artery disease. 5. Hyperglycemia. PLAN: Today, we will advance his diet as tolerated. The NG tube was removed this morning during rounds by Dr. Archibald. We will consult with Cardiology and appreciate recommendations for when to restart anticoagulation with the patient's home aspirin and Plavix. We will continue to manage pain, bowel regimen, and physical/occupational therapy to begin planning for discharge. The patient was seen and examined by Dr. Archibald. Job ID: [id number]
--- NOTE | 2019-06-15 15:01 | PRG ---
DATE OF SERVICE: 06/15/2019 SUBJECTIVE: Mr. Oscar underwent laparoscopic lysis of adhesions for small-bowel obstruction. He is clinically improving from that. OBJECTIVE: VITAL SIGNS: Temperature 98.2, pulse 72, and blood pressure 165/70. ABDOMEN: Soft and minimal tenderness. Bowel sounds are present. LABORATORY DATA: Hemoglobin is 13.6. Creatinine 0.9. IMPRESSION: 1. Red blood from the NG tube on presentation. This most likely was from a nasal bleed from placement of the NG tube while on aspirin and Plavix. He has had no further signs of overt gastrointestinal bleeding. 2. Abnormal CT scan of the stomach. Diverticulum was noted in the fundus of the stomach. However, upper endoscopy is recommended to evaluate that to rule out neoplastic lesion. 3. Family history of colon cancer in his mother. 4. History of duodenal ulcer, treated for Helicobacter pylori in the remote past. RECOMMENDATIONS: After resolution of a small-bowel obstruction, he can follow up in GI clinic in a month. At that point, he can undergo bowel prep and we can perform EGD and colonoscopy as an outpatient. I will be available as needed. Please call if GI can be of assistance. Job ID: [id number]
--- NOTE | 2019-06-15 19:48 | PDOC.HOSPP ---
- Subjective Encounter Date: 06/15/19 Encounter Time: 10:00 Subjective: Patient seen and examined for SBO. NG tube dced. No N/V. No hematemesis. No new complaints. No overnight events - Objective Vital Signs & Weight: Vital Signs (12 hours) Temp Pulse Resp BP Pulse Ox 06/15/19 19:14 97.5 F L 77 18 159/81 H 96 06/15/19 11:02 98.2 F 72 14 165/70 H 93 L Weight Weight 270 lb I&O: 06/14/19 06/15/19 06/16/19 06:59 06:59 06:59 Intake Total 3300 2500 Output Total 5250 950 Balance -1950 1550 Result Diagrams: 06/15/19 04:47 06/15/19 04:47 Additional Labs: Accuchecks 06/15/19 06/15/19 06/15/19 17:34 11:10 05:07 POC Glucose 98 97 115 H 06/14/19 23:25 POC Glucose 116 H Laboratory Tests 06/15/19 04:47 Phosphorus 2.2 L Hospitalist ROS - Review of Systems Cardiovascular: denies: chest pain, palpitations, orthopnea, paroxysmal noc. dyspnea, edema, light headedness, other Gastrointestinal: denies: nausea, vomiting, abdominal pain, diarrhea, constipation, melena, hematochezia, other - Medication Medications: Active Medications Generic Name Dose Route Start Last Admin Trade Name Freq PRN Reason Stop Dose Admin Atorvastatin Calcium 40 mg 06/13/19 21:00 06/14/19 20:00 Lipitor PO Not Given HS NIK Coenzyme Q10 100 mg 06/13/19 21:00 06/14/19 20:00 Coenzyme Q10 PO Not Given HS NIK Lactated Ringer's 1,000 mls @ 125 mls/hr 06/12/19 09:52 06/15/19 19:18 Lactated Ringer's IV Not Given .Q8H NIK Morphine Sulfate 4 mg 06/15/19 09:58 06/15/19 16:47 Morphine SLOW IVP 06/16/19 08:00 4 mg Q4H PRN Administration Breakthrough Pain Ondansetron HCl 4 mg 06/12/19 09:52 06/12/19 15:53 Zofran IVP 4 mg Q6H PRN Administration Nausea/Vomiting Pantoprazole Sodium 40 mg 06/15/19 09:00 06/15/19 08:55 Protonix IVP 40 mg DAILY NIK Administration Sodium Chloride 10 ml 06/13/19 09:00 06/15/19 09:03 Flush - Normal Saline IVF Not Given Q12HR NIK - Exam General Appearance: NAD Heart: RRR, no gallops Respiratory: no wheezes, no ronchi Gastrointestinal: non-distended, no guarding, no rigidity Gastrointestinal - other findings: BS+ Extremities: no cyanosis, no edema Hosp A/P - Plan DVT proph w/SCDs SBO s/p Laparoscopic adhesiolysis UGI bleed - POA - resolved CAD s/p LAD stent 2016 HTN h/o PUD due to H pylori Par Afib Dyslipidemia f/h of Colon CA Obesity BMI 32 Hyponatremia/Hypophophatemia Impaired glucose tolerance PLAN: Cont IV Protonix Replace Phosphorus Cont Toprol at 50 mg HS - increase dose in AM if BP stable Cont other meds as above Resume ASA/Plavix if ok with surg/cardio EGD/Colon as outpt Ambulate AM labs
[2019-06-15] MEDS: Ubidecarenone 50 MG CAP PO SCH (20:15)
[2019-06-15] MEDS: Atorvastatin Calcium 40 MG TAB PO SCH (20:15)
--- NOTE | 2019-06-16 01:29 | PRG ---
DATE OF SERVICE: SUBJECTIVE: The patient is currently on the surgical floor. He is postop day 1 from laparoscopic lysis of adhesions. He had a bowel movement today. His NG tube was discontinued. He has currently not had any nausea or vomiting. PHYSICAL EXAMINATION: VITAL SIGNS: Stable. The patient is afebrile. GENERAL: The patient is resting comfortably in bed. He was asleep when I entered the room. He woke up briefly for my exam. ABDOMEN: Nondistended, soft, and has active bowel sounds. His postop sites are clean, dry, and intact. ASSESSMENT AND PLAN: Status post laparoscopic adhesiolysis for an acute closed loop small bowel obstruction secondary to adhesion. Plan will be to continue encouraging out of bed, diet as tolerated, and likely discharge within the next 24-48 hours. Job ID: [id number]
[2019-06-16 05:41] LABS: Band 8 % (5-11); Eosinophils 1 % (0-10); Hemoglobin 14.5 g/dL (14.0-18.0); Lymphocytes 15 % (21-51); MDiff Complete? YES; Mean Corpuscular HGB CONC 33.6 g/dL (32.0-36.0); Mean Corpuscular Hemoglobin 30.7 pg (27.0-31.0); Mean Corpuscular Volume 91.3 fL (78.0-98.0); Mean Platelet Volume 7.1 fL (7.4-10.4); Monocytes 11 % (0-10); Neutrophil 65 % (42-75); Platelet Count 247 thou/uL (130-400); Platelet Morphology Comment Appears Adequate; RBC Distribution Width 11.4 % (11.5-14.5); RBC Morphology Normal; Red Blood Cell (RBC) Count 4.71 mill/uL (4.70-6.10); White Blood Cell (WBC) Count 7.5 thou/uL (4.8-10.8)
[2019-06-16 05:46] LABS: Anion Gap 13 mmol/L (10-20); BUN (Urea Nitrogen) 19 mg/dL (8.4-25.7); Calc. Creatinine Clearance 140 mL/min (70-130); Calcium 8.4 mg/dL (7.8-10.44); Carbon Dioxide 28 mmol/L (23-31); Chloride 104 mmol/L (98-107); Estimated GFR-MDRD Greater than 90; Glucose 80 mg/dL (83-110); Magnesium 1.9 mg/dL (1.6-2.6); Phosphorus 3.1 mg/dL (2.3-4.7); Potassium 3.8 mmol/L (3.5-5.1); Sodium 141 mmol/L (136-145)
[2019-06-16] MEDS: Dextrose 5 % And 0.9 % NaCl 1,000 ML IV SCH ×4 (06:04→23:47)
[2019-06-16] MEDS: Pantoprazole 40 MG VIAL IVP SCH (08:38)
[2019-06-16] MEDS: Lactated Ringer's 1,000 ML IV SCH (08:39)
--- NOTE | 2019-06-16 13:47 | PRG ---
DATE OF SERVICE: 06/16/2019 SUBJECTIVE: Mr. Oscar is a 73-year-old male, status post laparoscopy after small bowel obstruction, postop day 2. The patient tolerated the discontinuation of NG tube and on n.p.o. with ice chips. He developed no vomiting or nausea this morning. He was able to have one bowel and his pain is well controlled. PHYSICAL EXAMINATION: VITAL SIGNS: Stable GENERAL: The patient is sitting in chair, comfortable, with no acute respiratory distress. ABDOMEN: Soft, nondistended. Bowel sounds active. Surgical site is clean, dry, intact. ASSESSMENT AND PLAN: Continue supportive care. Continue to encourage physical activity. The patient will start to have clear liquid diet today and continue pain control. The patient was seen and evaluated with Dr. Archibald on round this morning. Job ID: [id number]
--- NOTE | 2019-06-16 17:16 | PDOC.HOSPP ---
- Subjective Encounter Date: 06/16/19 Encounter Time: 08:30 Subjective: Patient seen and examined for SBO. Some nausea. Abd pain improving. No fever or chills. No new complaints. No overnight events - Objective Vital Signs & Weight: Vital Signs (12 hours) Temp Pulse Resp BP Pulse Ox 06/16/19 11:44 97.2 F L 94 18 172/75 H 94 L 06/16/19 07:12 97.9 F 74 18 158/77 H 94 L Weight Admit Weight 270 lb Weight 270 lb I&O: 06/15/19 06/16/19 06/17/19 06:59 06:59 06:59 Intake Total 2500 1650 1500 Output Total 950 150 Balance 1550 1500 1500 Result Diagrams: 06/16/19 04:54 06/16/19 04:54 Additional Labs: Accuchecks 06/16/19 06/16/19 06/16/19 12:15 06:43 05:14 POC Glucose 102 86 66 L 06/15/19 06/15/19 23:21 17:34 POC Glucose 86 98 Hospitalist ROS - Review of Systems Respiratory: denies: cough, dry, shortness of breath, hemoptysis, SOB with excertion, pleuritic pain, sputum, wheezing, other Cardiovascular: denies: chest pain, palpitations, orthopnea, paroxysmal noc. dyspnea, edema, light headedness, other - Medication Medications: Active Medications Generic Name Dose Route Start Last Admin Trade Name Freq PRN Reason Stop Dose Admin Atorvastatin Calcium 40 mg 06/13/19 21:00 06/15/19 20:15 Lipitor PO Not Given HS [facility] Coenzyme Q10 100 mg 06/13/19 21:00 06/15/19 20:15 Coenzyme Q10 PO Not Given HS NIK Metoprolol Succinate 50 mg 06/15/19 21:00 06/15/19 20:15 Toprol Xl PO Not Given HS NIK Ondansetron HCl 4 mg 06/12/19 09:52 06/12/19 15:53 Zofran IVP 4 mg Q6H PRN Administration Nausea/Vomiting Pantoprazole Sodium 40 mg 06/15/19 09:00 06/16/19 08:38 Protonix IVP 40 mg DAILY NIK Administration Sodium Chloride 10 ml 06/13/19 09:00 06/16/19 08:35 Flush - Normal Saline IVF Not Given Q12HR NIK - Exam General Appearance: NAD Heart: RRR, no gallops, no rubs Respiratory: no wheezes, no rales, no ronchi Gastrointestinal: non-tender, non-distended, normal bowel sounds Extremities: no cyanosis, no clubbing Neurological: no new deficit Hosp A/P - Plan DVT proph w/SCDs SBO due to adhesions s/p Laparoscopic adhesiolysis ?UGI bleed - POA - resolved CAD s/p LAD stent 2016 HTN h/o PUD due to H pylori Par Afib Dyslipidemia f/h of Colon CA Obesity BMI 32 Hyponatremia/Hypophophatemia Impaired glucose tolerance PLAN: Clear liqd started Reduce IVF Cont IV Protonix Cont Toprol at 50 mg HS Cont other meds as above Resume ASA/Plavix if ok with surg/cardio EGD/Colon as outpt
[2019-06-16] MEDS ORDERED: Cyclobenzaprine 10 MG TAB PO PRN (18:15)
[2019-06-16] MEDS ORDERED: Gabapentin 300 MG CAP PO PRN (18:15)
[2019-06-16] MEDS ORDERED: Morphine 2 MG/ML SYRINGE SLOW IVP SCH (18:30)
[2019-06-16] MEDS: Acetaminophen 500 MG TAB PO SCH ×2 (18:33→23:42)
[2019-06-16] MEDS: Atorvastatin Calcium 40 MG TAB PO SCH (20:12)
[2019-06-16] MEDS: Ubidecarenone 50 MG CAP PO SCH (20:12)
[2019-06-16] MEDS ORDERED: Ketorolac Tromethamine 30 MG/ML VIAL IVP PRN (20:27)
--- NOTE | 2019-06-16 23:00 | PRG ---
DATE OF SERVICE: 06/16/2019 SUBJECTIVE: The patient remained on the surgical floor. He is postop day #2, status post laparoscopic lysis of adhesions. His bowel function has returned. He is tolerating a liquid diet. He has had one episode of nausea and abdominal pain today, but has subsequently resolved. He has ambulated multiple times today. PHYSICAL EXAMINATION: VITAL SIGNS: Stable. GENERAL: The patient is currently sitting in a chair beside his bed. He is awake, alert, and oriented x3. ABDOMEN: Soft, minimally distended, but it is markedly improved from my previous exams. He has active bowel sounds. Postop sites are clean, dry, and intact. ASSESSMENT: Status post laparoscopic adhesiolysis for acute closed-loop small-bowel obstruction secondary to adhesion. PLAN: Will be to continue with supportive care. Encourage out of bed and advance diet as tolerated. Job ID: [id number]
[2019-06-17] MEDS: Acetaminophen 500 MG TAB PO SCH ×4 (06:37→23:32)
[2019-06-17] MEDS: Pantoprazole 40 MG VIAL IVP SCH (09:30)
--- NOTE | 2019-06-17 11:28 | PRG ---
DATE OF SERVICE: 06/17/2019 SUBJECTIVE: Mr. Oscar is a 73-year-old male status post laparoscopy of the small bowel obstruction, postop day 3. The patient has been tolerating clear liquid diet. He had an episode of abdominal pain yesterday, but this morning he is almost pain free. He has had 2 large bowel this morning. He has been walking pretty well and he developed no vomiting and nauseated. He vital signs are stable. OBJECTIVE: GENERAL: The patient sits on a chair, comfortable, with no acute respiratory distress or pain. VITAL SIGNS: Temperature 98.3, heart rate 86, respiratory rate 16, O2 saturation 97% on room air, and blood pressure 114/62. LUNGS: Clear bilaterally. HEART: Regular rate and rhythm. ABDOMEN: Soft, mildly distended. Postop incision is clean, dry, and intact. Bowel sounds active. ASSESSMENT: Status post laparoscopy of small bowel obstruction, postop day 3. PLAN: Continue supportive care. Continue pain control. Continue aggressive walking program with advanced regular diet today as tolerated. Job ID: [id number]
--- NOTE | 2019-06-17 12:36 | PDOC.HOSPP ---
- Subjective Subjective: on CLD, passing gas, BG is better. abd still distended. PS +ve. - Objective Vital Signs & Weight: Vital Signs (12 hours) Temp Pulse Resp BP BP Pulse Ox 06/17/19 11:56 79 16 134/61 96 06/17/19 07:50 98.3 F 86 16 114/62 97 06/17/19 03:47 98.2 F 79 16 120/66 93 L Weight Admit Weight 270 lb Weight 270 lb I&O: 06/16/19 06/17/19 06/18/19 06:59 06:59 06:59 Intake Total 1650 3180 Output Total 150 Balance 1500 3180 Result Diagrams: 06/16/19 04:54 06/16/19 04:54 Additional Labs: Accuchecks 06/16/19 18:32 POC Glucose 138 H Hospitalist ROS - Medication Medications: Active Medications Generic Name Dose Route Start Last Admin Trade Name Freq PRN Reason Stop Dose Admin Acetaminophen 1,000 mg 06/16/19 18:15 06/17/19 11:43 Tylenol PO 1,000 mg Q6HR NIK Administration Atorvastatin Calcium 40 mg 06/13/19 21:00 06/16/19 20:12 Lipitor PO 40 mg HS NIK Administration Coenzyme Q10 100 mg 06/13/19 21:00 06/16/19 20:12 Coenzyme Q10 PO 100 mg HS NIK Administration Dextrose/Sodium Chloride 1,000 mls @ 75 mls/hr 06/16/19 17:14 06/16/19 23:47 D5 0.9% Ns IV 1,000 mls .[id number] NIK Administration Metoprolol Succinate 50 mg 06/15/19 21:00 06/16/19 20:12 Toprol Xl PO 50 mg HS NIK Administration Ondansetron HCl 4 mg 06/12/19 09:52 06/12/19 15:53 Zofran IVP 4 mg Q6H PRN Administration Nausea/Vomiting Pantoprazole Sodium 40 mg 06/15/19 09:00 06/17/19 09:30 Protonix IVP 40 mg DAILY NIK Administration Sodium Chloride 10 ml 06/13/19 09:00 06/17/19 09:28 Flush - Normal Saline IVF Not Given Q12HR NIK - Exam General Appearance: NAD, awake alert Heart: RRR, no murmur, no gallops, no rubs, normal peripheral pulses, irregular , diminshed peripheral pulses, murmur present, II/IV, III/IV Respiratory: CTAB, no wheezes, no rales, no ronchi, normal chest expansion, no tachypnea, normal percussion, rales, rhonchi, tachypneic, wheezes Gastrointestinal: soft, normal bowel sounds, distended Neurological: no focal deficits Psychiatric: normal affect Hosp A/P - Plan old records reviewed/req SBO due to adhesions -s/p Laparoscopic adhesion-lysis - ?UGI bleed - POA - resolved - Clear liqd -Adva as tolerate -- as abd still distended slowly advancing the diet is prudent. h/o PUD due to H pylori - Cont IV Protonix CAD s/p LAD stent 2016 HTN -- Cont Toprol at 50 mg HS pAfib --Resume ASA/Plavix if ok with surg/cardio Hyponatremia/Hypophophatemia---resolved Impaired glucose tolerance Dyslipidemia f/h of Colon CA--EGD/Colon as outpt. Obesity BMI 32 --cw counselling - diet/exercise
[2019-06-17] MEDS: Ubidecarenone 50 MG CAP PO SCH (20:34)
[2019-06-17] MEDS: Atorvastatin Calcium 40 MG TAB PO SCH (20:34)
[2019-06-17] MEDS: Dextrose 5 % And 0.9 % NaCl 1,000 ML IV SCH (23:31)
--- NOTE | 2019-06-18 00:41 | PRG ---
DATE OF SERVICE: 06/18/2019 SUBJECTIVE: The patient remains on the surgical floor. He is postop day 3, status post laparoscopic lysis of adhesions. He continues to tolerate now regular diet. His bowel functions have returned. His pain is controlled and he has been ambulating without difficulty. PHYSICAL EXAMINATION: VITAL SIGNS: Stable. GENERAL: The patient is asleep at the time of my exam. I did not awaken him. Nurses report no issues. ASSESSMENT: Status post laparoscopic adhesiolysis for acute closed-loop small bowel obstruction secondary to adhesion. PLAN: Plan will be to continue supportive care and likely the patient will be discharged within the next 24 hours. Job ID: [id number]
[2019-06-18] MEDS: Acetaminophen 500 MG TAB PO SCH ×4 (05:34→23:07)
[2019-06-18 05:42] LABS: #Basophils 0.1 thou/uL (0.0-0.2); #Eosinphils 0.2 thou/uL (0.0-0.7); #Lymphocytes 1.4 thou/uL (1.20-3.40); #Monocytes 0.9 thou/uL (0.11-0.59); #Neutrophils 6.1 thou/uL (1.40-6.50); %Basophils 0.7 % (0.0-1.0); %Eosinophils 2.8 % (0.0-10.0); %Lymphocytes 16.2 % (21.0-51.0); %Monocytes 10.1 % (0.0-10.0); %Neutrophils 70.2 % (42.0-75.0); Hemoglobin 14.1 g/dL (14.0-18.0); Mean Corpuscular HGB CONC 33.6 g/dL (32.0-36.0); Mean Corpuscular Hemoglobin 30.3 pg (27.0-31.0); Mean Corpuscular Volume 90.3 fL (78.0-98.0); Mean Platelet Volume 6.9 fL (7.4-10.4); Platelet Count 251 thou/uL (130-400); RBC Distribution Width 11.6 % (11.5-14.5); Red Blood Cell (RBC) Count 4.65 mill/uL (4.70-6.10); White Blood Cell (WBC) Count 8.7 thou/uL (4.8-10.8)
[2019-06-18 06:02] LABS: Anion Gap 11 mmol/L (10-20); BUN (Urea Nitrogen) 12 mg/dL (8.4-25.7); Calc. Creatinine Clearance 150 mL/min (70-130); Calcium 7.9 mg/dL (7.8-10.44); Carbon Dioxide 22 mmol/L (23-31); Chloride 105 mmol/L (98-107); Estimated GFR-MDRD Greater than 90; Glucose 99 mg/dL (83-110); Potassium 3.4 mmol/L (3.5-5.1); Sodium 135 mmol/L (136-145)
[2019-06-18] MEDS: Pantoprazole 40 MG VIAL IVP SCH (08:10)
[2019-06-18] MEDS ORDERED: Potassium Chloride 20 MEQ TAB PO SCH (10:00)
--- NOTE | 2019-06-18 12:00 | PRG ---
DATE OF SERVICE: 06/18/2019 SUBJECTIVE: Mr. Oscar is a 73-year-old male, status post laparoscopy of the small bowel obstruction, postop day 4. The patient has been tolerating with his regular diet yesterday. Pain is well controlled. He had passed a lot of gas, but not has solid bowel. Since yesterday, he has been walking regularly and he developed no vomiting or nausea. His vital signs have been stable. OBJECTIVE: GENERAL: The patient is sitting in the chair, comfortable, with no acute respiratory distress or pain. VITAL SIGNS: Temperature 98.2, heart rate 75, respiratory rate 16, O2 saturation 96 on room air, blood pressure 138/78. LUNGS: Clear bilaterally. HEART: Regular rate and rhythm. ABDOMEN: Soft and nondistended. Bowel sounds are active. ASSESSMENT: Status post laparoscopy of small bowel obstruction, postoperative day 4. PLAN: We will continue supportive care. Continue pain control. Encourage walking and physical activity. If the patient has good bowel today and tolerates with his regular diet, the patient can be discharged tomorrow. The patient will need to see Dr. Archibald in two weeks for followup. Job ID: [id number]
[2019-06-18] MEDS: Dextrose 5 % And 0.9 % NaCl 1,000 ML IV SCH ×2 (13:14→21:45)
--- NOTE | 2019-06-18 14:31 | PDOC.HOSPP ---
- Subjective Subjective: pt had rough night. loose stools this am. ambulating. - Objective Vital Signs & Weight: Vital Signs (12 hours) Temp Pulse Resp BP Pulse Ox 06/18/19 11:13 97.9 F 82 18 121/72 97 06/18/19 08:10 94 L 06/18/19 07:30 70 16 128/74 94 L 06/18/19 03:49 98.2 F 75 16 138/78 96 Weight Admit Weight 270 lb Weight 270 lb I&O: 06/17/19 06/18/19 06/19/19 06:59 06:59 06:59 Intake Total 3180 1300 250 Balance 3180 1300 250 Result Diagrams: 06/18/19 05:34 06/18/19 05:34 Hospitalist ROS - Medication Medications: Active Medications Generic Name Dose Route Start Last Admin Trade Name Freq PRN Reason Stop Dose Admin Acetaminophen 1,000 mg 06/16/19 18:15 06/18/19 11:15 Tylenol PO 1,000 mg Q6HR NIK Administration Atorvastatin Calcium 40 mg 06/13/19 21:00 06/17/19 20:34 Lipitor PO 40 mg HS NIK Administration Coenzyme Q10 100 mg 06/13/19 21:00 06/17/19 20:34 Coenzyme Q10 PO 100 mg HS NIK Administration Dextrose/Sodium Chloride 1,000 mls @ 75 mls/hr 06/16/19 17:14 06/18/19 13:14 D5 0.9% Ns IV Not Given .[id number] NIK Metoprolol Succinate 50 mg 06/15/19 21:00 06/17/19 20:34 Toprol Xl PO 50 mg HS NIK Administration Ondansetron HCl 4 mg 06/12/19 09:52 06/12/19 15:53 Zofran IVP 4 mg Q6H PRN Administration Nausea/Vomiting Pantoprazole Sodium 40 mg 06/15/19 09:00 06/18/19 08:10 Protonix IVP 40 mg DAILY NIK Administration Sodium Chloride 10 ml 06/13/19 09:00 06/18/19 08:10 Flush - Normal Saline IVF 10 ml Q12HR NIK Administration - Exam General Appearance: NAD, awake alert, ill appearing Eye: PERRL ENT: normocephalic atraumatic Neck: supple, symmetric Heart: RRR Respiratory: CTAB, no wheezes Gastrointestinal: soft, non-tender, normal bowel sounds Extremities: no cyanosis Neurological: no focal deficits Hosp A/P - Plan SBO due to adhesions -s/p Laparoscopic adhesion-lysis - ?UGI bleed - POA - resolved - Clear liqd -----------> soft diet h/o PUD due to H pylori - Cont IV Protonix CAD s/p LAD stent 2016 HTN -- Cont Toprol at 50 mg pAfib --Resume ASA/Plavix if ok with surg/cardio Hyponatremia/Hypophophatemia---resolved Hypokalemia -being monitored and replaced. Impaired glucose tolerance Dyslipidemia f/h of Colon CA--EGD/Colon as outpt. Obesity BMI 32 --counselling when able. dipso - when tolerating the diet and cleared by the specialist.
[2019-06-18] MEDS: Potassium Chloride 20 MEQ TAB PO SCH (17:24)
[2019-06-18] MEDS: Ubidecarenone 50 MG CAP PO SCH (20:07)
[2019-06-18] MEDS: Atorvastatin Calcium 40 MG TAB PO SCH (20:07)
[2019-06-18] MEDS ORDERED: Melatonin 3 MG TAB PO PRN (22:01)
--- NOTE | 2019-06-19 04:06 | PRG ---
DATE OF SERVICE: 06/19/2019 SUBJECTIVE: The patient remains on the surgical floor. He is postop day 4 status post laparoscopic lysis of adhesions. The patient has been tolerating a diet. He does report some gas both upper GI and lower GI. He has continued to have bowel movements, though he reports they are somewhat loose today. He has been continued to ambulate and his pain is also controlled. PHYSICAL EXAMINATION: VITAL SIGNS: Stable. The patient is afebrile. GENERAL: The patient is resting comfortably. He is sitting on the side of his bed and has just returned from ambulating. He appears in no distress. ABDOMEN: Soft, nondistended with active bowel sounds. ASSESSMENT AND PLAN: Plan will be to continue supportive care and be discharged within the foreseeable future. Job ID: [id number]
[2019-06-19 05:25] LABS: #Eosinphils 0.3 thou/uL (0.0-0.7); #Lymphocytes 1.2 thou/uL (1.20-3.40); #Monocytes 0.9 thou/uL (0.11-0.59); #Neutrophils 6.6 thou/uL (1.40-6.50); %Basophils 0.2 % (0.0-1.0); %Eosinophils 3.3 % (0.0-10.0); %Lymphocytes 13.3 % (21.0-51.0); %Monocytes 9.6 % (0.0-10.0); %Neutrophils 73.5 % (42.0-75.0); Hemoglobin 13.4 g/dL (14.0-18.0); Mean Corpuscular HGB CONC 34.1 g/dL (32.0-36.0); Mean Corpuscular Hemoglobin 30.9 pg (27.0-31.0); Mean Corpuscular Volume 90.8 fL (78.0-98.0); Mean Platelet Volume 6.9 fL (7.4-10.4); Platelet Count 217 thou/uL (130-400); RBC Distribution Width 11.6 % (11.5-14.5); Red Blood Cell (RBC) Count 4.34 mill/uL (4.70-6.10)
[2019-06-19 05:46] LABS: Anion Gap 11 mmol/L (10-20); BUN (Urea Nitrogen) 9 mg/dL (8.4-25.7); Calc. Creatinine Clearance 160 mL/min (70-130); Calcium 7.9 mg/dL (7.8-10.44); Carbon Dioxide 24 mmol/L (23-31); Chloride 106 mmol/L (98-107); Estimated GFR-MDRD Greater than 90; Glucose 86 mg/dL (83-110); Potassium 3.5 mmol/L (3.5-5.1); Sodium 137 mmol/L (136-145)
[2019-06-19] MEDS: Acetaminophen 500 MG TAB PO SCH (05:48)
[2019-06-19] MEDS: Potassium Chloride 20 MEQ TAB PO SCH (08:05)
[2019-06-19] MEDS: Pantoprazole 40 MG VIAL IVP SCH (08:05)
[2019-06-19] MEDS ORDERED: Aspirin 81 mg Enteric Coated Tablet PO SCH (09:00)
[2019-06-19] MEDS ORDERED: Clopidogrel Bisulfate 75 MG TAB PO SCH (09:00)
[2019-06-19 10:43] VITALS: BP 151/82; TEMP 97.8
--- NOTE | 2019-06-19 11:27 | PRG ---
DATE OF SERVICE: 06/19/2019 SUBJECTIVE: Mr. Oscar is a 73-year-old man, who is postop day #5, status post laparoscopic adhesiolysis for acute closed-loop small-bowel obstruction. The patient admits to adequate pain control. He is tolerating general diet. He is passing flatus and having loose bowel movements. He ambulates without much difficulty. OBJECTIVE: VITAL SIGNS: Include blood pressure 129/75, pulse is 88, respiratory rate is 20, temperature 98.5 degrees Fahrenheit, oxygen saturation is 94% on room air. ABDOMEN: Soft, morbidly obese, and distended with gas. Incisions are intact, clean, and dry. He clearly has no peritoneal signs on examination. LABORATORY FINDINGS: Include a CBC with 9000 white blood cells, hemoglobin and hematocrit 13.4 and 39.4 respectively. Platelet count is 217,000, all stable. Metabolic profile; sodium 137, potassium 3.5, chloride is 106, bicarb is 24, BUN is 9, creatinine 0.70, glucose is 86, magnesium is 1.8. IMPRESSION: 1. Postop day #5, status post laparoscopic adhesiolysis. 2. Resolved acute small-bowel obstruction. 3. Acute hypokalemia. 4. Acute hypomagnesemia. PLAN: 1. Correct abnormal electrolytes. 2. The patient is certainly hemodynamically stable to be discharged home from surgical standpoint. 3. Discharge will be at the discretion of the primary service. 4. The patient is to see me in the Surgery Clinic in 2 weeks. Job ID: [id number]
--- NOTE | 2019-06-20 04:12 | DIS ---
DATE OF ADMISSION: 06/12/2019 DATE OF DISCHARGE: 06/19/2019 DISCHARGE DIAGNOSES: 1. Small bowel obstruction due to adhesions, status post laparoscopic adhesiolysis. 2. Questionable upper gastrointestinal bleed, present on admission and resolved, did not require transfusion. 3. History of peptic ulcer disease due to Helicobacter pylori. 4. Coronary artery disease, status post LAD stent remotely. 5. Paroxysmal atrial fibrillation, on dual antiplatelet treatment. 6. Dyslipidemia. 7. Impaired glucose tolerance. 8. Obesity with BMI of 32. DISCHARGE MEDICATIONS: 1. Aspirin 81 mg daily. 2. Lipitor 40 mg at bedtime. 3. Plavix 75 mg daily. 4. Fexofenadine 180 mg daily. 5. Fluticasone nasal spray. 6. Toprol-XL 50 mg daily. 7. Omeprazole 20 mg daily. 8. Ubidecarenone 100 mg. 9. Coenzyme Q10 daily. PHYSICAL EXAMINATION: VITAL SIGNS: On the day of discharge, the patient is afebrile with a temp of 98.5, pulse 88, and blood pressure 129/75, saturating 94% on room air. GENERAL: The patient is alert, oriented x3. He is not in any acute distress. He is ambulating without any distress. CARDIOVASCULAR: Regular rate and rhythm without murmurs, rubs, or gallops. LUNGS: Clear to auscultation bilaterally without wheezing, rales, or rhonchi. ABDOMEN: Mildly distended, but soft. Incisions are intact, clean and dry. No peritoneal signs on examination. HOSPITAL COURSE: This is a 73-year-old male, admitted on June 12 with small bowel obstruction as well as coffee-ground emesis. He has gone through laparoscopic adhesiolysis. Post surgery osman, he did very well starting with clear liquids and diet advanced. His leukocytosis resolved and on the day of discharge is 9.0 and hemoglobin is 13.4. His creatinine is 0.75. The patient is clinically stable to be discharged home. DISCHARGE INSTRUCTIONS: ACTIVITY: As tolerated. DIET: Regular diet. FOLLOWUP: Follow up with the surgery clinic in 2 weeks. Follow up with primary care physician in 1 week. TIME SPENT: Discharge time took over 30 minutes. Job ID: [id number]
== END 2019-06-19 11:26 | disposition home or self-care (01) | DRG 336 ==
LOC: ERS 05:17 → SURG A 07:50
PROVIDERS: ADMIT Internal Medicine; ATTEND Internal Medicine
PROC: 0D9670Z Drainage of Stomach with Drainage Device, Via Natural or Artificial Opening (ICD-10-PCS; 2019-06-12)
PROC: 0DN84ZZ Release Small Intestine, Percutaneous Endoscopic Approach (ICD-10-PCS; principal; 2019-06-14)
PROC: 0W9G4ZZ Drainage of Peritoneal Cavity, Percutaneous Endoscopic Approach (ICD-10-PCS; 2019-06-14)
DX: K56.50 Intestinal adhesions [bands], unspecified as to partial versus complete obstruction (principal); K92.2 Gastrointestinal hemorrhage, unspecified; R18.8 Other ascites; E87.1 Hypo-osmolality and hyponatremia; I25.10 Atherosclerotic heart disease of native coronary artery without angina pectoris; Z95.5 Presence of coronary angioplasty implant and graft; I48.0 Paroxysmal atrial fibrillation; E78.5 Hyperlipidemia, unspecified; E66.9 Obesity, unspecified; Z68.32 Body mass index [BMI] 32.0-32.9, adult; K21.9 Gastro-esophageal reflux disease without esophagitis; Z88.5 Allergy status to narcotic agent; I10 Essential (primary) hypertension; Z98.890 Other specified postprocedural states; Z80.0 Family history of malignant neoplasm of digestive organs; R73.9 Hyperglycemia, unspecified; E83.39 Other disorders of phosphorus metabolism; E87.6 Hypokalemia; Z87.11 Personal history of peptic ulcer disease
CPT/HCPCS: 36415; 36416; 71045; 74018; 74250; 80048; 80053; 82550; 83036; 83690; 83735; 83880; 84100; 84443; 84484; 85007; 85025; 85027; 85610; 85730; 86850; 86900; 86901; 93005; 96361; 96374; 96375; 96376; C9113; J0171; J1100; J2001; J2270; J2370; J2405; J2543; J2704; J3010; J3490; J7042; J7050; S0020